=== PATIENT | female | born 1950 | race Caucasian/White ===

== ENCOUNTER 2016-06-20 08:59 | Day surgery (SDC) | payer MEDICARE, BC ==
[~2016-06-20 08:59] MED LIST: LIDOCAINE HCL 1% MPF SOL ONE; PROPOFOL 500 MG/50 ML EMU IV ONE
[2016-06-20 11:10] VITALS: RESP 18
[2016-06-20 11:28] VITALS: BP 161/87; PULSE 74; TEMP 97.4; O2SAT 98
== END 2016-06-20 12:06 | disposition home or self-care (01) | DRG 951 ==
LOC: SURG 08:59
PROVIDERS: ATTEND Surgery
DX: Z12.11 Encounter for screening for malignant neoplasm of colon (principal); D12.3 Benign neoplasm of transverse colon; Z80.0 Family history of malignant neoplasm of digestive organs; K57.30 Diverticulosis of large intestine without perforation or abscess without bleeding
CPT/HCPCS: J2001; J2704

== ENCOUNTER 2018-07-01 11:29 | Day surgery (SDC) | payer MEDICARE, BC ==
[2018-07-01] MEDS: PHENYLEPHRINE HCL 10% OPHTHAL SOL ONE ×3 (11:49→11:54)
[2018-07-01] MEDS: CYCLOPENTOLATE 1% SOL ONE ×3 (11:50→11:55)
[2018-07-01] MEDS ORDERED: KETOROLAC/HOME 0.5% SOL RIGHTEYE ONE (11:51)
[2018-07-01] MEDS: TROPICAMIDE 1% OPHTH SOL ONE ×3 (11:51→11:56)
[2018-07-01] MEDS ORDERED: MOXIFLOXACIN-HOME SOL RIGHTEYE ONE ×2 (11:51→11:53)
[2018-07-01] MEDS: KETOROLAC/HOME 0.5% SOL RIGHTEYE ONE ×2 (11:52→11:56)
[2018-07-01] MEDS: TETRACAINE HCL 0.5 % 1 DROP SOL ONE ×2 (11:56→13:29)
[2018-07-01] MEDS ORDERED: MIDAZOLAM 2 MG/2 ML SOL ONE (13:10)
[2018-07-01] MEDS ORDERED: LIDOCAINE HCL 2% MPF 10 ML SOL ONE (13:18)
[2018-07-01] MEDS ORDERED: POVIDONE IODINE 5% SOL ONE (13:18)
[2018-07-01] MEDS ORDERED: BSS W/ 0.5 MG P.F. EPI 1 BOTTLE ONE (13:18)
[2018-07-01 14:02] VITALS: TEMP 97.4; O2SAT 94
[2018-07-01 14:04] VITALS: BP 131/78; PULSE 78; RESP 24
[2018-07-01] MEDS ORDERED: ACETAZOLAMIDE 250 MG PO ONE ×2 (14:06)
[2018-07-01] MEDS ORDERED: ACETAZOLAMIDE 500 MG CER PO ONE (14:07)
== END 2018-07-01 14:37 | disposition home or self-care (01) | DRG 125 ==
LOC: SURG 11:29
PROVIDERS: ATTEND Ophthalmology
DX: H25.89 Other age-related cataract (principal)
CPT/HCPCS: J2250; A9270-GY

== ENCOUNTER 2018-07-22 13:29 | Day surgery (SDC) | payer MEDICARE, BC ==
[2018-07-22] MEDS: TROPICAMIDE 1% OPHTH SOL ONE ×3 (13:53→13:59)
[2018-07-22] MEDS: CYCLOPENTOLATE 1% SOL ONE ×3 (13:53→13:59)
[2018-07-22] MEDS: PHENYLEPHRINE HCL 10% OPHTHAL SOL ONE ×3 (13:53→13:59)
[2018-07-22] MEDS ORDERED: MOXIFLOXACIN-HOME SOL LEFTEYE ONE ×2 (13:54→13:57)
[2018-07-22] MEDS: KETOROLAC/HOME 0.5% SOL LEFTEYE ONE ×2 (13:54→13:59)
[2018-07-22] MEDS ORDERED: KETOROLAC/HOME 0.5% SOL LEFTEYE ONE (13:57)
[2018-07-22] MEDS: TETRACAINE HCL 0.5 % 1 DROP SOL ONE ×2 (14:00→15:45)
[2018-07-22] MEDS ORDERED: MIDAZOLAM 2 MG/2 ML SOL ONE (14:23)
[2018-07-22] MEDS ORDERED: BSS W/ 0.5 MG P.F. EPI 1 BOTTLE ONE (15:37)
[2018-07-22] MEDS ORDERED: POVIDONE IODINE 5% SOL ONE (15:37)
[2018-07-22] MEDS ORDERED: LIDOCAINE HCL 2% MPF 10 ML SOL ONE (15:37)
[2018-07-22] MEDS ORDERED: ACETAZOLAMIDE 250 MG PO ONE (15:47)
[2018-07-22] MEDS ORDERED: ACETAZOLAMIDE 500 MG CER PO ONE (16:10)
[2018-07-22 16:12] VITALS: BP 138/61; PULSE 68; RESP 20; TEMP 97.4; O2SAT 96
== END 2018-07-22 16:34 | disposition home or self-care (01) | DRG 125 ==
LOC: SURG 13:29
PROVIDERS: ATTEND Ophthalmology
DX: H25.89 Other age-related cataract (principal)
CPT/HCPCS: J2250; A9270-GY

== ENCOUNTER 2018-10-26 10:15 | Emergency (ER) | payer MEDICARE, BC ==
[2018-10-26 11:09] LABS: BASOPHILS % (AUTO) 0 % (0-3); EOSINOPHILS % (AUTO) 0 % (0-9); HEMATOCRIT 50 % (35-47); HEMOGLOBIN 15.2 gm/dl (12.0-15.5); LYMPHOCYTES % (AUTO) 2.6 % (10-50); MEAN CORPUSCULAR HGB CONC 30.3 gm/dl (32.0-36.0); MEAN CORPUSCULAR VOLUME 96 fL (81-99); MONOCYTES % (AUTO) 3.2 % (0-12)
[2018-10-26 11:20] LABS: APPEARANCE,URINE Slightly Cloudy; BILIRUBIN,URINE NEGATIVE (NEGATIVE); COLOR,URINE Yellow; GLUCOSE, URINE (UA) NEGATIVE (NEGATIVE); KETONES,URINE NEGATIVE (NEGATIVE); LEUKOCYTE ESTERASE ,URINE NEGATIVE (NEGATIVE); NITRATE,URINE NEGATIVE (NEGATIVE); OCCULT BLOOD,URINE 1+ (NEG-TRACE); UROBILINOGEN,URINE 0.2 (0.2-1.0 EU)
[2018-10-26 11:24] LABS: ALBUMIN 3.5 gm/dl (3.4-5.0); ALKALINE PHOSPHATASE 102 IU/L (46-116); ALT 18 IU/L (14-63); AST 12 IU/L (15-37); BILIRUBIN,TOTAL 0.6 mg/dl (0.2-1.0); BLOOD UREA NITROGEN 23 mg/dl (7-18); CALCIUM 9.4 mg/dl (8.5-10.1); CARBON DIOXIDE 31.4 mEq/L (21-32); CHLORIDE 100 mMol/L (98-107); CREATININE 1.22 mg/dl (0.60-1.00); GLUCOSE 129 mg/dl (74-106); TOTAL PROTEIN 8.1 gm/dl (6.4-8.2); TROP I < 0.017 ng/ml (0.000-0.056)
[2018-10-26 11:33] LABS: BACTERIA NEGATIVE (< 1+); CRYSTALS NEGATIVE (0-3 AVE/HPF); RBC,URINE 0-3 (0-3AV/HPF)
[2018-10-26 14:13] VITALS: TEMP 97.9
[2018-10-26] MEDS ORDERED: LACTATED RINGERS 1,000 ML IV ONE (15:02)
[2018-10-26 17:03] VITALS: RESP 22
[2018-10-26 17:05] VITALS: BP 139/93; PULSE 110; O2SAT 96
== END 2018-10-26 15:55 | disposition short-term general hospital (02) | DRG 390 ==
LOC: ED 10:15
DX: K56.609 Unspecified intestinal obstruction, unspecified as to partial versus complete obstruction (principal); K43.9 Ventral hernia without obstruction or gangrene; R06.00 Dyspnea, unspecified
CPT/HCPCS: 36415; 71045; 74176; 80053; 81001; 83605; 83880; 84484; 85025; 87040; 93005; 99284; 99285